=== PATIENT | male | born 1960 | race Hispanic/Latino ===

== ENCOUNTER → 2018-05-13 | Outpatient (CLI) | payer OTHER ==
[~2018-05-13] MED LIST: REGADENOSON 0.4 MG/5 ML PF SYG IVP SCH
== END | disposition home or self-care (01) ==
LOC: SHCH 09:03
PROVIDERS: ATTEND Internal Medicine Cardiovascular Disease
DX: I99.8 Other disorder of circulatory system (principal); I25.10 Atherosclerotic heart disease of native coronary artery without angina pectoris
CPT/HCPCS: 78452; 93017; 96374; A9500 ×2; J2785

== ENCOUNTER 2018-09-19 06:13 | Day surgery (SDC) | payer OTHER ==
[2018-09-17 14:15] LABS: BASOPHILS % (AUTO) 0.5 % (0.0-5.0); EOSINOPHILS % (AUTO) 4.5 % (0.0-8.0); HEMATOCRIT 28.7 % (42-54); LYMPHOCYTES % (AUTO) 21.9 % (21.0-51.0); MEAN CORPUSCULAR HEMOGLOBIN 31.2 pg (27.0-33.0); MEAN CORPUSCULAR HGB CONC 34.1 g/dL (32.0-36.0); MEAN CORPUSCULAR VOLUME 91.4 fL (79-99); MONOCYTES % (AUTO) 7.8 % (3.0-13.0); NEUTROPHILS % (AUTO) 65.3 % (40.0-77.0); PLATELET COUNT (AUTO) 226 K/uL (130-400); RED BLOOD CELL COUNT(AUTO) 3.14 MIL/uL (4.50-6.20); RED CELL DISTRIBUTION WIDTH 14.9 % (11.0-15.5); WHITE BLOOD COUNT (AUTO) 5.5 K/uL (4.8-10.8)
[2018-09-17 14:17] LABS: APPEARANCE,URINE Clear (CLEAR); BILIRUBIN,URINE Negative (NEGATIVE); COLOR,URINE Yellow (YELLOW); GLUCOSE, URINE (UA) Negative (NEGATIVE); KETONES,URINE Negative (NEGATIVE); LEUKOCYTE ESTERASE ,URINE Negative (NEGATIVE); NITRATE,URINE Negative (NEGATIVE); OCCULT BLOOD,URINE Negative (NEGATIVE); PROTEIN,URINE POS 2+ mg/dL (NEGATIVE); UROBILINOGEN,URINE 0.2 mg/dL (0.2-1.0)
[2018-09-17 14:25] VITALS: BP 123/65
[2018-09-17 14:25] LABS: CREATININE 4.1 mg/dL (0.5-1.5); POTASSIUM 4.7 mmol/L (3.5-5.1)
[2018-09-17 14:28] LABS: INR 0.96 (0.85-1.15); PARTIAL THROMBOPLASTIN TIME 28.3 SEC (26.3-35.5); PROTHROMBIN TIME 10.1 SEC (9.6-11.6)
[2018-09-17 14:36] LABS: BACTERIA,URINE Rare /HPF (None Seen); RBC,URINE 0-1 /HPF (0-1); SQUAMOUS EPITHELIAL CELL,UR Rare /HPF (0-2); WBC,URINE 0-1 /HPF (0-1)
--- NOTE | 2018-09-18 10:51 | NUR ---
labs abnormal labs reported to dr. gudino , message left with Jaqueline, as per Jaqueline fax so can review. labs faxed as intructed
--- NOTE | 2018-09-18 13:16 | NUR ---
LABS RECEIVED CALL BACK FOR ABNORMAL LABS REPORTED. PER DR. FRASER START NS 50CC/HR ON ARRIVAL DAY OF PROCEDURE DUE TO ELEVATED BUN/CREA ALSO MAKE PATIENT CASE NUMBER 2 , ROSI JOINER FROM [employer] WORKER MADE AWARE.
[~2018-09-19] VITALS: Ht 165.1 cm; Wt 88.2 kg
[2018-09-19] VITALS (10 sets, daily range): BP systolic 126–150; BP diastolic 52–74
[~2018-09-19 06:13] MED LIST changes: +FENO54TA6 PO; +FURO80TA3 PO; +IMAT400T8 PO; +INSLAN SQ; +LEVO88TA7 PO; +LOSA50TA64 PO; +METO-408 PO; +PANT40TA25 PO; -REGADENOSON 0.4 MG/5 ML PF SYG IVP SCH; +SODIUM CHLORIDE 0.9% 1000ML 1,000 ML IV SCH
[2018-09-19] MEDS ORDERED: HEPARIN SODIUM 1000UNIT/ML 10ML VIAL ONE (14:40)
[2018-09-19] MEDS ORDERED: IOHEXOL 350 MG/ML 100ML INFUS..BTL IV ONE (14:40)
[2018-09-19] MEDS ORDERED: LIDOCAINE HCL 1% 20 ML VIAL ONE (14:40)
[2018-09-19] MEDS ORDERED: IOHEXOL-350 50ML VIAL IV ONE (14:40)
--- NOTE | 2018-09-19 14:50 | NUR ---
procedure patient taken to geoscience laboratory technician for schedule procedure. spouse at bedside
[2018-09-19] MEDS ORDERED: DEXTROSE 50%-WATER 50 ML DISP.SYRIN IV PRN (15:45)
[2018-09-19] MEDS ORDERED: GLUCAGON 1MG KIT 1 MG ML IM PRN (15:45)
== END 2018-09-19 20:05 | disposition home or self-care (01) ==
LOC: DAH 06:13
PROVIDERS: ATTEND Internal Medicine Cardiovascular Disease
DX: I25.118 Atherosclerotic heart disease of native coronary artery with other forms of angina pectoris (principal); Z79.4 Long term (current) use of insulin; Z79.899 Other long term (current) drug therapy; Z87.891 Personal history of nicotine dependence; Z83.3 Family history of diabetes mellitus; Z82.49 Family history of ischemic heart disease and other diseases of the circulatory system; Z82.3 Family history of stroke; Z79.01 Long term (current) use of anticoagulants; E78.5 Hyperlipidemia, unspecified; Z98.890 Other specified postprocedural states; I25.5 Ischemic cardiomyopathy; I12.9 Hypertensive chronic kidney disease with stage 1 through stage 4 chronic kidney disease, or unspecified chronic kidney disease; E11.22 Type 2 diabetes mellitus with diabetic chronic kidney disease; N18.4 Chronic kidney disease, stage 4 (severe); E03.9 Hypothyroidism, unspecified; Z98.49 Cataract extraction status, unspecified eye
CPT/HCPCS: 36415; 71045; 80048; 81001; 82948; 85025; 85610; 85730; 93005; 93458; A4606; C1760; C1894; J1644; J7030; Q9967

== ENCOUNTER 2018-09-24 07:33 | Inpatient (IN) | payer OTHER ==
[2018-09-23 18:38] LABS: BASOPHILS % (AUTO) 0.5 % (0.0-5.0); EOSINOPHILS % (AUTO) 3.9 % (0.0-8.0); HEMATOCRIT 28.6 % (42-54); LYMPHOCYTES % (AUTO) 14.3 % (21.0-51.0); MEAN CORPUSCULAR HEMOGLOBIN 31.3 pg (27.0-33.0); MEAN CORPUSCULAR HGB CONC 34.5 g/dL (32.0-36.0); MEAN CORPUSCULAR VOLUME 90.6 fL (79-99); MONOCYTES % (AUTO) 8.9 % (3.0-13.0); NEUTROPHILS % (AUTO) 72.4 % (40.0-77.0); PLATELET COUNT (AUTO) 280 K/uL (130-400); RED BLOOD CELL COUNT(AUTO) 3.15 MIL/uL (4.50-6.20); RED CELL DISTRIBUTION WIDTH 15.6 % (11.0-15.5); WHITE BLOOD COUNT (AUTO) 6.8 K/uL (4.8-10.8)
[2018-09-23 18:53] LABS: INR 0.91 (0.85-1.15); PARTIAL THROMBOPLASTIN TIME 28.5 SEC (26.3-35.5); PROTHROMBIN TIME 9.6 SEC (9.6-11.6)
[2018-09-23 18:58] VITALS: BP 156/75
[2018-09-23 19:09] LABS: ALBUMIN 4.2 g/dL (3.5-5.0); BILIRUBIN,TOTAL 0.3 mg/dL (0.2-1.0); POTASSIUM 4.8 mmol/L (3.5-5.1); TOTAL PROTEIN, SERUM 7.4 g/dL (6.0-8.3)
--- NOTE | 2018-09-23 19:30 | NUR ---
Spoke to Dunia Jeffries RN and okay to cancel 2Decho due to EVAN will be done in procedured. Dunia Jeffries RN also ordered chest xray to be done stat in am. Carotid doppler pending to be done by ultrasound notified
--- NOTE | 2018-09-23 19:54 | NUR ---
LABS INFORMED Stu MARTINEZ RN OF ABNORMAL H/H/BUN/CREA. PER DR. MARTINEZ, NO ORDERS RECEIVED. PROCEED WITH PLANNED PROCEDURE.
[2018-09-23 20:13] LABS: HEMOGLOBIN A1C 7.5 % (4.0-6.0)
[2018-09-24] VITALS (32 sets, daily range): BP systolic 86–139; BP diastolic 29–78
[~2018-09-24] VITALS: Ht 165.1 cm; Wt 90.4 kg
[~2018-09-24 07:33] MED LIST changes: -SODIUM CHLORIDE 0.9% 1000ML 1,000 ML IV SCH
[2018-09-24] MEDS ORDERED: PAPAVERINE HCL 30 MG/ML 2ML VIAL ONE (07:47)
[2018-09-24] MEDS ORDERED: NITROGLYCERIN 50 MG/D5% WATER 1 BOT ONE (07:47)
[2018-09-24] MEDS ORDERED: BACITRACIN 50,000 UNIT VIAL ONE (07:48)
--- NOTE | 2018-09-24 07:55 | NUR ---
POTENTIAL FOR INFECTION: SHAVED FROM CHIN TO TOES BY KANE TYLER FOLLOWED BY WIPING WITH NISSA: 2% CHLORHEXIDINE GLUCONATE CLOTH PATIENTS PRE-OP SKIN OREO. Addendum: 09/24/18 at 0850 by ROBBIE JEAN BAPTISTE RN RN POTENTIAL FOR INFECTION: SKIN PREP.
[2018-09-24] MEDS ORDERED: EPINEPHRINE 1 MG/ML 30ML VIAL IJ ONE (08:00)
[2018-09-24] MEDS ORDERED: LIDOCAINE PF 2% 5ML ABBOJECT ONE (08:16)
[2018-09-24] MEDS ORDERED: HEPARIN SODIUM 1000UNIT/ML 10ML VIAL ONE (08:16)
[2018-09-24] MEDS ORDERED: ESMOLOL HCL 10 MG/ML 10 ML VIAL ONE (08:16)
[2018-09-24] MEDS ORDERED: SODIUM BICARB 50MEQ 50ML VIAL ONE ×2 (08:16→10:59)
[2018-09-24] MEDS ORDERED: EPINEPHRINE 1 MG/ML AMPULE ONE (08:16)
[2018-09-24] MEDS ORDERED: PROTAMINE SULFATE 10 MG/ML 25ML VIAL IV ONE (08:16)
[2018-09-24] MEDS ORDERED: NOREPINEPHRINE BITARTRATE 1 MG/1 ML ML IV ONE (08:17)
[2018-09-24] MEDS ORDERED: MIDAZOLAM HCL 1 MG/ML 5ML VIAL ONE (08:17)
[2018-09-24] MEDS ORDERED: AMINOCAPROIC ACID 250 MG/ML 20 ML VIAL IV ONE (08:17)
[2018-09-24] MEDS ORDERED: ROCURONIUM 10MG/1ML SYR 10 MG/ML ML ONE (08:17)
[2018-09-24] MEDS ORDERED: PROPOFOL 10 MG/ML 20ML VIAL IV ONE (08:17)
[2018-09-24] MEDS ORDERED: FENTANYL CITRATE PF 50 MCG/1 ML 20ML VIAL IJ ONE (08:17)
[2018-09-24] MEDS ORDERED: SODIUM CHLORIDE 0.9% 1000ML 1,000 ML IV ONE (08:25)
[2018-09-24] MEDS: CEFAZOLIN SODIUM 1 GM VIAL IVP ONE ×2 (08:38→09:30)
[2018-09-24 08:42] LABS: CHOLESTEROL 167 mg/dL (<200); HDL CHOLESTEROL 22 mg/dL (29-71); LDL DIRECT 92 mg/dL (0-99); TRIGLYCERIDES 333 mg/dL (30-200)
[2018-09-24 09:08] LABS: ABG BASE EXCESS -1.1 mmol/L (-2.0-3.0); ABG HCO3 22.2 mmol/L (21.0-28.0); ABG OXYGEN SATURATION 98.8 % (95.0-99.0); ABG PCO2 32 mmHg (35-48)
[2018-09-24] MEDS ORDERED: SODIUM CHLORIDE 0.9% 500ML 500 ML IV SCH (09:21)
[2018-09-24] MEDS ORDERED: AMIODARONE HCL 50 MG/ML 3 ML VIAL ONE (09:28)
[2018-09-24] MEDS ORDERED: PROPOFOL 1000 MG/100 ML 100 ML IV PRN (09:30)
[2018-09-24] MEDS ORDERED: NOREPINEPHRINE 4MG/NS 250ML 250 ML IV PRN (09:30)
[2018-09-24] MEDS ORDERED: ACETAMINOPHEN 325 MG TAB PO PRN ×2 (09:30)
[2018-09-24] MEDS ORDERED: NITROGLYCERIN 50 MG/D5% WATER 250 BOT IV SCH (09:30)
[2018-09-24] MEDS ORDERED: DEXTROSE 50%-WATER 50 ML DISP.SYRIN IV PRN (09:30)
[2018-09-24] MEDS ORDERED: SODIUM CHLORIDE 0.9% 1000ML 1,000 ML IV SCH (09:30)
[2018-09-24] MEDS ORDERED: MORPHINE SULFATE 4 MG/1ML SYG IV PRN (09:30)
[2018-09-24] MEDS ORDERED: AMINOCAPROIC ACID 15,000 MG in SODIUM CHLORIDE 0.9% 250 ML IV SCH (09:30)
[2018-09-24] MEDS ORDERED: GLUCAGON 1MG KIT 1 MG ML IM PRN (09:30)
[2018-09-24] MEDS ORDERED: POTASSIUM PHOS 15 mMOL+NS250ML 250 ML IV PRN (09:30)
[2018-09-24] MEDS ORDERED: POTASSIUM CHLORIDE 20MEQ/100ML 100 ML IV PRN (09:30)
[2018-09-24] MEDS ORDERED: ACETAMINOPHEN 650 MG SUPPOSITORY RC PRN (09:30)
[2018-09-24] MEDS ORDERED: TRAMADOL HCL 50 MG TABLET PO PRN (09:30)
[2018-09-24] MEDS ORDERED: MAGNESIUM 2GM PREMIX 50ML 50 ML IV PRN (09:30)
[2018-09-24] MEDS ORDERED: ALBUMIN (HUMAN) 5% 250 ML IV PRN (09:30)
[2018-09-24] MEDS ORDERED: NICARDIPINE HCL 100MG/ 0.9% NACL 100ML IV PRN (09:30)
[2018-09-24] MEDS ORDERED: SODIUM CHLORIDE 0.9% 250 ML IV PRN (09:30)
[2018-09-24] MEDS ORDERED: SODIUM CHLORIDE 0.9% 10 ML VIAL IVP PRN (09:30)
[2018-09-24] MEDS ORDERED: EPINEPHRINE 8 MG in DEXTROSE 5%-WATER 250 ML IV PRN (09:30)
[2018-09-24] MEDS ORDERED: VASOPRESSIN 20 UNITS/ML 1ML VIAL ONE (10:40)
[2018-09-24] MEDS ORDERED: FUROSEMIDE 10 MG/ML 4ML VIAL ONE (11:05)
[2018-09-24 11:49] LABS: ABG BASE EXCESS -7.3 mmol/L (-2.0-3.0); ABG HCO3 17.7 mmol/L (21.0-28.0); ABG OXYGEN SATURATION 98.8 % (95.0-99.0); ABG PCO2 33 mmHg (35-48)
--- NOTE | 2018-09-24 12:20 | NUR ---
PATIENT ARRIVED TO [facility] [address] GRANDE AND OR STAFF. PATIENT CONNECTED TO VENT AT ORDERED SETTINGS. 8.0 ETT @ 23CM LIP. 2 CHEST TUBES CONNECTED TO 1 ATRIUM WITH SUCTION. 35ML DRAINAGE PRESENT ON ARRIVAL. 16FR LUNA CATHETER IN PLACE, DRAINING CLEAR YELLOW URINE. PATIENT ARRIVED ON EPI AND LEVOPHED DRIPS. AMICAR INFUSION. LABS, ABG AND CXR PENDING ORDERED. ASSESSED PER CHARTING. BED LOCKED AND LOW. MONITORS ON AND ALARMS SET. WILL CONTINUE TO MONITOR.
--- NOTE | 2018-09-24 12:30 | NUR ---
[facility] OFFICE AND [facility] OFFICE CALLED TO NOTIFY OF PATIENT'S ADMISSION BY Olga IRVAS
[2018-09-24 12:47] LABS: HEMATOCRIT 22.7 % (42-54); MEAN CORPUSCULAR HEMOGLOBIN 31.1 pg (27.0-33.0); MEAN CORPUSCULAR VOLUME 91.5 fL (79-99); PLATELET COUNT (AUTO) 238 K/uL (130-400); RED BLOOD CELL COUNT(AUTO) 2.48 MIL/uL (4.50-6.20); RED CELL DISTRIBUTION WIDTH 15.3 % (11.0-15.5); WHITE BLOOD COUNT (AUTO) 15.6 K/uL (4.8-10.8)
[2018-09-24 12:58] LABS: CREATININE 3.6 mg/dL (0.5-1.5); INR 1.2 (0.85-1.15); MAGNESIUM 1.8 mg/dL (1.80-2.40); PARTIAL THROMBOPLASTIN TIME 25.8 SEC (26.3-35.5); PHOSPHORUS 5.5 mg/dL (2.5-4.9); POTASSIUM 3.5 mmol/L (3.5-5.1); PROTHROMBIN TIME 12.6 SEC (9.6-11.6)
[2018-09-24 13:03] LABS: ABG BASE EXCESS -4.2 mmol/L (-2.0-3.0); ABG HCO3 21.2 mmol/L (21.0-28.0); ABG OXYGEN SATURATION 97.6 % (95.0-99.0); ABG PCO2 40 mmHg (35-48)
[2018-09-24] MEDS: SODIUM BICARB 50MEQ 50ML VIAL IV PRN ×3 (13:07→14:26)
[2018-09-24] MEDS: CALCIUM GLUCONATE 1 GM in SODIUM CHLORIDE 0.9% 50 ML IV PRN ×3 (13:16→16:15)
[2018-09-24] MEDS: INSULIN REGULAR, HUMAN 3ML 100 UNIT in SODIUM CHLORIDE 0.9% 99 ML IV SCH ×4 (13:18→19:59)
--- NOTE | 2018-09-24 13:50 | NUR ---
PATIENT'S FAMILY, (SPOUSE, CHILDREN AND BROTHERS) IN TO VISIT. EDUCATED ON POST OP PLAN, VISITATION AND ANSWERED ALL QUESTIONS. LEYDI BOSTON (SPOUSE) [phone]. FAMILY WILL CALL FOR UPDATE LATER AND WILL RETURN TO VISIT IN AM.
[2018-09-24 14:24] LABS: ABG BASE EXCESS -2.5 mmol/L (-2.0-3.0); ABG OXYGEN SATURATION 98.6 % (95.0-99.0); ABG PCO2 42 mmHg (35-48)
[2018-09-24] MEDS ORDERED: CEFAZOLIN SODIUM 1 GM VIAL IV SCH (14:30)
[2018-09-24] MEDS ORDERED: HEPARIN SODIUM 1000UNIT/ML 10ML VIAL IV ONE (15:29)
[2018-09-24] MEDS ORDERED: PHENYLEPHRINE HCL 10 MG/ML 1ML VIAL IV ONE (15:29)
[2018-09-24 15:53] LABS: HEMATOCRIT 23.6 % (42-54)
[2018-09-24 15:58] LABS: ABG BASE EXCESS -0.7 mmol/L (-2.0-3.0); ABG HCO3 23.7 mmol/L (21.0-28.0); ABG OXYGEN SATURATION 99.3 % (95.0-99.0); ABG PCO2 38 mmHg (35-48)
[2018-09-24 17:08] LABS: ABG BASE EXCESS -0.1 mmol/L (-2.0-3.0); ABG HCO3 24.6 mmol/L (21.0-28.0); ABG OXYGEN SATURATION 99.2 % (95.0-99.0); ABG PCO2 40 mmHg (35-48)
[2018-09-24] MEDS: CEFAZOLIN SODIUM 1 GM VIAL IV SCH (17:12)
[2018-09-24 17:21] LABS: CREATININE 3.9 mg/dL (0.5-1.5); MAGNESIUM 2.5 mg/dL (1.80-2.40); POTASSIUM 4.3 mmol/L (3.5-5.1); THYROID STIMULATING HORMONE 5.81 uIU/mL (0.36-3.74)
[2018-09-24 18:13] LABS: ABG HCO3 27.5 mmol/L (21.0-28.0); ABG OXYGEN SATURATION 98.2 % (95.0-99.0); ABG PCO2 42 mmHg (35-48)
[2018-09-24] MEDS: ONDANSETRON HCL 4 MG/2 ML VIAL IV PRN (18:19)
--- NOTE | 2018-09-24 19:30 | NUR ---
ASSESSMENT PT ASSESSED AT THIS TIME. PT DROWSY AROUSED BY VERBAL STIMULI REMAINS INTUBATED WITH 8.0 ET TUBE TAPPED AT APPROXIMATELY 23 CM LIP. VENT SETTINGS SIMV RATE 12, VT 600, PEEP 5, PS 10, FIO2 40%. CLEAR/DIMINISHED BILATERAL BREATH SOUNDS AUSCULTATED. OG TUBE NOTED PLACEMENT ASSESSED AND CONFIRMED WITH AIR BOLUS THEN PLACED BACK TO LIWS DRAINAGE IS PINKISH BROWN IN COLOR. BOWEL SOUNDS HYPOACTIVE. MID LINE INCISION DRESSING DRY AND INTACT. MEDIASTINAL CHEST TUBES X 2 TO 20CM H20 SUCTION DRAINAGE IS SANGUINEOUS IN COLOR. LUNA TO GRAVITY DRAINING WELL PALE YELLOW URINE. RIGHT LOWER EXT WITH SOILA HOSE LEFT LOWER EXT WITH LUKE BANDAGE. RIJ CORDIS INFUSING WELL. LEFT RADIAL A LINE WITH GOOD WAVEFORM PIV TO RIGHT FOREARM INFUSING WELL.
[2018-09-24] MEDS: IMATINIB 400 MG PO SCH (19:33)
[2018-09-24] MEDS: ATORVASTATIN CALCIUM 40 MG TABLET PO SCH (19:33)
[2018-09-24 20:03] LABS: ABG BASE EXCESS 2.6 mmol/L (-2.0-3.0); ABG HCO3 26.5 mmol/L (21.0-28.0); ABG OXYGEN SATURATION 98.3 % (95.0-99.0); ABG PCO2 38 mmHg (35-48)
[2018-09-24] MEDS: MORPHINE SULFATE 2 MG/ML 1ML SYG IV PRN (21:38)
--- NOTE | 2018-09-24 22:20 | NUR ---
DR. HARRISON TERRY UPDATED ON PT STATUS CURRENT VS, MEDS AND ATTEMPTS TO WEAN FROM VENT BUT PT REMAINS DROWSY AND NOT BREATHING OVER THE VENT WHEN DECREASED. PT DOES WAKE UP WHEN SPOKEN TO NODS TO QUESTIONS WHEN ASKED AND MOVING EXTS EQUALLY WITH GENERALIZED WEAKNESS. ORDER WAS GIVEN TO KEEP INTUBATED OVER NIGHT AND PLAN FOR EXTUBATION IN THE MORNING. WILL CONTINUE TO MONITOR.
[2018-09-25] VITALS (26 sets, daily range): BP systolic 70–135; BP diastolic 26–77
[2018-09-25] MEDS: CEFAZOLIN SODIUM 1 GM VIAL IV SCH ×2 (01:21→08:32)
[2018-09-25 04:08] LABS: ABG BASE EXCESS 3.1 mmol/L (-2.0-3.0); ABG OXYGEN SATURATION 97.7 % (95.0-99.0); ABG PCO2 38 mmHg (35-48)
[2018-09-25] MEDS: CALCIUM GLUCONATE 1 GM in SODIUM CHLORIDE 0.9% 50 ML IV PRN ×2 (04:10→04:21)
[2018-09-25] MEDS ORDERED: CALCIUM GLUCONATE 1 GM/10 ML VIAL IV ONE (04:10)
[2018-09-25 04:21] LABS: HEMATOCRIT 23.2 % (42-54); MEAN CORPUSCULAR HEMOGLOBIN 30.6 pg (27.0-33.0); MEAN CORPUSCULAR HGB CONC 33.7 g/dL (32.0-36.0); MEAN CORPUSCULAR VOLUME 90.8 fL (79-99); PLATELET COUNT (AUTO) 261 K/uL (130-400); RED BLOOD CELL COUNT(AUTO) 2.55 MIL/uL (4.50-6.20); RED CELL DISTRIBUTION WIDTH 15.5 % (11.0-15.5); WHITE BLOOD COUNT (AUTO) 12.3 K/uL (4.8-10.8)
[2018-09-25 04:30] LABS: INR 1.02 (0.85-1.15); PARTIAL THROMBOPLASTIN TIME 27.2 SEC (26.3-35.5); PROTHROMBIN TIME 10.7 SEC (9.6-11.6)
[2018-09-25 04:32] LABS: MAGNESIUM 2.1 mg/dL (1.80-2.40); PHOSPHORUS 3.2 mg/dL (2.5-4.9); POTASSIUM 4.1 mmol/L (3.5-5.1)
[2018-09-25] MEDS: MORPHINE SULFATE 2 MG/ML 1ML SYG IV PRN (04:40)
[2018-09-25] MEDS: LEVOTHYROXINE 88 MCG TABLET PO SCH (05:56)
[2018-09-25] MEDS: ASPIRIN 325 MG TABLET PO SCH (08:32)
[2018-09-25] MEDS: FAMOTIDINE/PF 20 MG/2 ML VIAL IV SCH (08:32)
[2018-09-25] MEDS ORDERED: FUROSEMIDE 10 MG/ML 10ML VIAL IVP SCH (09:00)
[2018-09-25] MEDS ORDERED: ASPIRIN 325MG EC TAB 325 MG TABLET.DR PO SCH (09:00)
[2018-09-25] MEDS: ONDANSETRON HCL 4 MG/2 ML VIAL IV PRN ×2 (09:40→19:11)
--- NOTE | 2018-09-25 10:02 | NUR ---
PATIENT IS AWAKE, ABLE TO SUSTAIN HEAD LIFT, STRONG COUGH AND FOLLOWING COMMANDS. PATIENT'S AND DAUGHTER AT BEDSIDE, ALL QUESTIONS ANSWERED. PATIENT IS ON SIMV 4/600/+5/10/40% PENDING ABG IN 15MIN.
[2018-09-25 10:23] LABS: ABG BASE EXCESS 3.3 mmol/L (-2.0-3.0); ABG HCO3 26.9 mmol/L (21.0-28.0); ABG OXYGEN SATURATION 98.8 % (95.0-99.0); ABG PCO2 38 mmHg (35-48)
[2018-09-25 11:45] LABS: ABG BASE EXCESS 5.3 mmol/L (-2.0-3.0); ABG HCO3 29.4 mmol/L (21.0-28.0); ABG OXYGEN SATURATION 99.5 % (95.0-99.0); ABG PCO2 41 mmHg (35-48)
[2018-09-25] MEDS: TRAMADOL HCL 50 MG TABLET PO PRN ×2 (13:03→21:05)
--- NOTE | 2018-09-25 15:17 | NUR ---
DC PLAN VISITED WITH PATIENT. PATIENT LIVES WITH SPOUSE. INDEPENDENT ABLE TO PERFORM ADL'S. PATIENT HAS NO SERVICES OR DME'S. FEELS SAFE TO RETURN HOME. STILL IN SOME PAIN. Addendum: 09/25/18 at 1519 by OMA LAGUERRE RN CM Amended: Links added.
[2018-09-25] MEDS ORDERED: FAMOTIDINE 20MG TAB 20 MG TAB PO SCH (21:00)
[2018-09-25] MEDS: FENOFIBRATE NANOCRYSTALLIZED 48 MG TAB PO SCH (21:04)
[2018-09-25] MEDS: ATORVASTATIN CALCIUM 40 MG TABLET PO SCH (21:05)
[2018-09-25] MEDS: IMATINIB 400 MG PO SCH (21:05)
[2018-09-25] MEDS: INSULIN REGULAR, HUMAN 3ML 100 UNIT in SODIUM CHLORIDE 0.9% 99 ML IV SCH ×2 (21:58)
[2018-09-26] VITALS (17 sets, daily range): BP systolic 97–124; BP diastolic 43–73
[2018-09-26 04:10] LABS: MEAN CORPUSCULAR HGB CONC 34.5 g/dL (32.0-36.0); MEAN CORPUSCULAR VOLUME 92.7 fL (79-99); PLATELET COUNT (AUTO) 176 K/uL (130-400); RED BLOOD CELL COUNT(AUTO) 2.22 MIL/uL (4.50-6.20); RED CELL DISTRIBUTION WIDTH 15.7 % (11.0-15.5); WHITE BLOOD COUNT (AUTO) 6.6 K/uL (4.8-10.8)
[2018-09-26 04:17] LABS: HEMATOCRIT 20.6 % (42-54)
[2018-09-26 04:24] LABS: CREATININE 4.1 mg/dL (0.5-1.5); POTASSIUM 4.7 mmol/L (3.5-5.1)
[2018-09-26] MEDS: LEVOTHYROXINE 88 MCG TABLET PO SCH (05:52)
[2018-09-26] MEDS: INSULIN HUMULIN R 100 UNIT/ML 3ML SQ SCH ×4 (07:30→21:20)
[2018-09-26] MEDS: FAMOTIDINE/PF 20 MG/2 ML VIAL IV SCH (08:06)
[2018-09-26] MEDS: ASPIRIN 325 MG TABLET PO SCH (08:06)
[2018-09-26] MEDS: FUROSEMIDE 80 MG TABLET PO SCH (08:06)
[2018-09-26] MEDS: ENOXAPARIN SODIUM 40 MG/0.4 ML SYRINGE SQ SCH (08:07)
[2018-09-26] MEDS ORDERED: ENOXAPARIN SODIUM 30 MG/0.3 ML SQ SCH (09:00)
[2018-09-26] MEDS: TRAMADOL HCL 50 MG TABLET PO PRN (19:56)
[2018-09-26] MEDS: FENOFIBRATE NANOCRYSTALLIZED 48 MG TAB PO SCH (20:47)
[2018-09-26] MEDS: ATORVASTATIN CALCIUM 40 MG TABLET PO SCH (20:48)
[2018-09-26] MEDS: IMATINIB 400 MG PO SCH (20:55)
[2018-09-27 03:00] VITALS: BP 115/70
[2018-09-27 03:33] LABS: MEAN CORPUSCULAR HEMOGLOBIN 31.4 pg (27.0-33.0); MEAN CORPUSCULAR HGB CONC 33.7 g/dL (32.0-36.0); MEAN CORPUSCULAR VOLUME 93.2 fL (79-99); PLATELET COUNT (AUTO) 186 K/uL (130-400); RED BLOOD CELL COUNT(AUTO) 2.18 MIL/uL (4.50-6.20); RED CELL DISTRIBUTION WIDTH 15.7 % (11.0-15.5)
[2018-09-27 03:35] LABS: HEMATOCRIT 20.3 % (42-54)
[2018-09-27 03:39] LABS: CREATININE 4.9 mg/dL (0.5-1.5); POTASSIUM 4.3 mmol/L (3.5-5.1)
[2018-09-27] MEDS: INSULIN HUMULIN R 100 UNIT/ML 3ML SQ SCH ×3 (06:25→21:00)
[2018-09-27] MEDS: LEVOTHYROXINE 88 MCG TABLET PO SCH (06:25)
[2018-09-27] MEDS: TRAMADOL HCL 50 MG TABLET PO PRN ×2 (06:29→21:52)
[2018-09-27 06:53] LABS: HEMATOCRIT 20.9 % (42-54)
[2018-09-27 07:00] VITALS: BP 118/71
[2018-09-27] MEDS ORDERED: SODIUM CHLORIDE 0.9% 250 ML IV ONE (07:44)
[2018-09-27] MEDS: METOPROLOL TARTRATE 25 MG TAB PO SCH ×2 (09:00→21:45)
[2018-09-27] MEDS: ENOXAPARIN SODIUM 40 MG/0.4 ML SYRINGE SQ SCH (09:00)
[2018-09-27] MEDS: FUROSEMIDE 80 MG TABLET PO SCH (09:00)
[2018-09-27] MEDS: ASPIRIN 325 MG TABLET PO SCH (09:00)
[2018-09-27] MEDS: FAMOTIDINE/PF 20 MG/2 ML VIAL IV SCH (09:00)
[2018-09-27 11:45] VITALS: BP 118/75
[2018-09-27] MEDS: CEFAZOLIN SODIUM 1 GM VIAL IVP SCH ×2 (14:45→23:36)
[2018-09-27] MEDS: IPRATROPIUM 0.5 MG/2.5 ML INH IH SCH ×2 (18:23→22:57)
[2018-09-27 19:00] VITALS: BP 105/64
[2018-09-27] MEDS: IMATINIB 400 MG PO SCH (21:00)
[2018-09-27] MEDS: FENOFIBRATE NANOCRYSTALLIZED 48 MG TAB PO SCH (21:45)
[2018-09-27] MEDS: ATORVASTATIN CALCIUM 40 MG TABLET PO SCH (21:45)
[2018-09-27] MEDS: POLYETHYLENE GLYCOL 3350 17 GM POWD.PACK PO SCH (22:15)
[2018-09-27] MEDS ORDERED: LACTULOSE 20 GM/30 ML UDCUP PO PRN (22:15)
[2018-09-27 23:00] VITALS: BP 132/74
[2018-09-28 03:00] VITALS: BP 128/69
[2018-09-28 04:11] LABS: HEMATOCRIT 22.6 % (42-54); MEAN CORPUSCULAR HEMOGLOBIN 31.3 pg (27.0-33.0); MEAN CORPUSCULAR HGB CONC 34.5 g/dL (32.0-36.0); PLATELET COUNT (AUTO) 182 K/uL (130-400); RED BLOOD CELL COUNT(AUTO) 2.48 MIL/uL (4.50-6.20); RED CELL DISTRIBUTION WIDTH 15.5 % (11.0-15.5); WHITE BLOOD COUNT (AUTO) 6.3 K/uL (4.8-10.8)
[2018-09-28 04:48] LABS: CREATININE 4.8 mg/dL (0.5-1.5); MAGNESIUM 2.3 mg/dL (1.80-2.40); POTASSIUM 4.2 mmol/L (3.5-5.1)
[2018-09-28 04:51] LABS: B-TYPE NATRIURETIC PEPTIDE 1300 pg/mL (0-100)
[2018-09-28] MEDS: LEVOTHYROXINE 88 MCG TABLET PO SCH (05:51)
[2018-09-28] MEDS: INSULIN HUMULIN R 100 UNIT/ML 3ML SQ SCH ×5 (06:08→20:48)
[2018-09-28] MEDS: IPRATROPIUM 0.5 MG/2.5 ML INH IH SCH ×4 (06:25→23:25)
[2018-09-28 07:00] VITALS: BP 131/66
[2018-09-28] MEDS: ENOXAPARIN SODIUM 40 MG/0.4 ML SYRINGE SQ SCH (08:27)
[2018-09-28] MEDS: FAMOTIDINE/PF 20 MG/2 ML VIAL IV SCH (08:28)
[2018-09-28] MEDS: ASPIRIN 325 MG TABLET PO SCH (08:29)
[2018-09-28] MEDS: POLYETHYLENE GLYCOL 3350 17 GM POWD.PACK PO SCH (08:29)
[2018-09-28] MEDS: CARVEDILOL 12.5 MG TABLET PO SCH ×2 (08:29→20:35)
[2018-09-28] MEDS: FUROSEMIDE 80 MG TABLET PO SCH (08:29)
[2018-09-28 10:30] VITALS: BP 95/61
[2018-09-28 15:30] VITALS: BP 99/41
[2018-09-28 19:00] VITALS: BP 102/49
[2018-09-28] MEDS: FENOFIBRATE NANOCRYSTALLIZED 48 MG TAB PO SCH (20:34)
[2018-09-28] MEDS: ATORVASTATIN CALCIUM 40 MG TABLET PO SCH (20:35)
[2018-09-28] MEDS: IMATINIB 400 MG PO SCH (20:35)
[2018-09-28 23:00] VITALS: BP 107/58
[2018-09-29 03:00] VITALS: BP 111/63
[2018-09-29] MEDS: LEVOTHYROXINE 88 MCG TABLET PO SCH (06:07)
[2018-09-29] MEDS: INSULIN HUMULIN R 100 UNIT/ML 3ML SQ SCH ×4 (06:10→21:44)
[2018-09-29 07:00] VITALS: BP 109/64
[2018-09-29] MEDS: IPRATROPIUM 0.5 MG/2.5 ML INH IH SCH ×4 (07:14→23:29)
[2018-09-29] MEDS: POLYETHYLENE GLYCOL 3350 17 GM POWD.PACK PO SCH (08:28)
[2018-09-29] MEDS: FAMOTIDINE/PF 20 MG/2 ML VIAL IV SCH (08:28)
[2018-09-29] MEDS: ASPIRIN 325 MG TABLET PO SCH (08:29)
[2018-09-29] MEDS: FUROSEMIDE 80 MG TABLET PO SCH (08:31)
[2018-09-29] MEDS: ENOXAPARIN SODIUM 40 MG/0.4 ML SYRINGE SQ SCH (08:32)
[2018-09-29] MEDS: CARVEDILOL 12.5 MG TABLET PO SCH ×2 (08:34→21:38)
[2018-09-29 11:00] VITALS: BP 101/47
[2018-09-29] MEDS ORDERED: EPOETIN ALFA 10,000 UNIT/ML VIAL SQ SCH (11:15)
[2018-09-29 16:00] VITALS: BP_SYST 110; BP_SYST 111; BP_DIAS 27; BP_DIAS 73
[2018-09-29] MEDS ORDERED: METOCLOPRAMIDE 10 MG/2 ML VIAL IVP SCH (16:00)
[2018-09-29] MEDS ORDERED: METOCLOPRAMIDE 10 MG/2 ML VIAL ONE (16:05)
[2018-09-29] MEDS: METOCLOPRAMIDE 10 MG TABLET PO SCH ×2 (16:30→21:39)
[2018-09-29 20:45] VITALS: BP 114/64
[2018-09-29] MEDS ORDERED: CALCIUM GLUCONATE 1 GM/10 ML VIAL IV SCH (21:00)
[2018-09-29] MEDS: CALCIUM GLUCONATE 1 GM in SODIUM CHLORIDE 0.9% 50 ML IV SCH ×2 (21:27→22:22)
[2018-09-29] MEDS: FENOFIBRATE NANOCRYSTALLIZED 48 MG TAB PO SCH (21:37)
[2018-09-29] MEDS: ATORVASTATIN CALCIUM 40 MG TABLET PO SCH (21:38)
[2018-09-29] MEDS: IRON POLYSACCHARIDES COMPLEX 150 MG CAPSULE PO SCH (21:39)
[2018-09-29] MEDS: ASCORBIC ACID 500 MG TAB PO SCH (21:39)
[2018-09-29] MEDS: DOCUSATE SODIUM 100 MG CAP PO SCH (21:39)
[2018-09-29] MEDS: IMATINIB 400 MG PO SCH (21:45)
[2018-09-30] VITALS (7 sets, daily range): BP systolic 97–124; BP diastolic 48–65
[2018-09-30 04:20] LABS: INR 0.96 (0.85-1.15); PARTIAL THROMBOPLASTIN TIME 32.1 SEC (26.3-35.5); PROTHROMBIN TIME 10.1 SEC (9.6-11.6)
[2018-09-30 04:26] LABS: LYMPHOCYTES % (AUTO) 13.7 % (21.0-51.0); MEAN CORPUSCULAR HEMOGLOBIN 30.3 pg (27.0-33.0); MEAN CORPUSCULAR HGB CONC 33.5 g/dL (32.0-36.0); MEAN CORPUSCULAR VOLUME 90.5 fL (79-99); MONOCYTES % (AUTO) 8.6 % (3.0-13.0); NEUTROPHILS % (AUTO) 75.7 % (40.0-77.0); PLATELET COUNT (AUTO) 190 K/uL (130-400); RED BLOOD CELL COUNT(AUTO) 2.32 MIL/uL (4.50-6.20); WHITE BLOOD COUNT (AUTO) 6.9 K/uL (4.8-10.8)
[2018-09-30 04:44] LABS: % IRON SATURATION 18.3 % (30-44)
[2018-09-30 04:52] LABS: ALBUMIN 2.5 g/dL (3.5-5.0); CREATININE 5.2 mg/dL (0.5-1.5); PHOSPHORUS 2.9 mg/dL (2.5-4.9); POTASSIUM 4.3 mmol/L (3.5-5.1)
[2018-09-30] MEDS: IPRATROPIUM 0.5 MG/2.5 ML INH IH SCH ×4 (06:17→23:18)
[2018-09-30] MEDS: INSULIN HUMULIN R 100 UNIT/ML 3ML SQ SCH ×4 (07:30→21:00)
[2018-09-30] MEDS: ASCORBIC ACID 500 MG TAB PO SCH ×2 (08:08→21:41)
[2018-09-30] MEDS: IRON POLYSACCHARIDES COMPLEX 150 MG CAPSULE PO SCH ×2 (08:08→21:41)
[2018-09-30] MEDS: FUROSEMIDE 40 MG TABLET PO SCH (08:09)
[2018-09-30] MEDS: CARVEDILOL 12.5 MG TABLET PO SCH ×2 (08:10→21:43)
[2018-09-30] MEDS: FAMOTIDINE/PF 20 MG/2 ML VIAL IV SCH (08:10)
[2018-09-30] MEDS: DOCUSATE SODIUM 100 MG CAP PO SCH ×2 (08:10→21:44)
[2018-09-30] MEDS: METOCLOPRAMIDE 10 MG TABLET PO SCH ×4 (08:10→21:44)
[2018-09-30] MEDS: POLYETHYLENE GLYCOL 3350 17 GM POWD.PACK PO SCH (08:11)
[2018-09-30] MEDS: ENOXAPARIN SODIUM 30 MG/0.3 ML SQ SCH (08:12)
[2018-09-30] MEDS: LEVOTHYROXINE 88 MCG TABLET PO SCH (08:16)
[2018-09-30] MEDS ORDERED: LIDOCAINE HCL 1% MDV 50ML VIAL ONE (08:36)
[2018-09-30] MEDS ORDERED: LIDOCAINE 1%-EPI 1:100,000 20 ML VIAL IJ ONE (08:36)
--- NOTE | 2018-09-30 08:57 | NUR ---
PT IN RECORDING STUDIO SET UP WORKER HAVING PERMACATH
[2018-09-30] MEDS: ASPIRIN 325 MG TABLET PO SCH (10:26)
--- NOTE | 2018-09-30 12:10 | NUR ---
TIME OUT FOR EVAN DONE WITH DR TYLER AND PHYSICIAN NEONATOLOGY AT BEDSIDE. Addendum: 09/30/18 at 1555 by PRISCILLA ARCOS RN RN ERROR WRONG CHART
--- NOTE | 2018-09-30 12:30 | NUR ---
EVAN ABORTED- UNABLE TO PASS SCOPE. RECEIVED A TOTAL OF 100MCG IV FENTANYL AND 5MG IV VERSED. DROWSY. PLACED ON HIS LEFT SIDE. AIRWAY PATENT. WILL OBSERVE. PLEASE REFER TO V/S. Addendum: 09/30/18 at 1547 by PRISCILLA ARCOS RN RN ERROR WRONG CHART
--- NOTE | 2018-09-30 12:30 | NUR ---
EVAN ABORTED- UNABLE TO PASS SCOPE. RECEIVED A TOTAL OF 100MCG IV FENTANYL AND 5MG IV VERSED. DROWSY. PLACED ON HIS LEFT SIDE. AIRWAY PATENT. WILL OBSRVE. PLEASE REFER TO V/S. Addendum: 09/30/18 at 1547 by PRISCILLA ARCOS RN RN ERROR WRONG CHART
--- NOTE | 2018-09-30 15:00 | NUR ---
PT IS NOW AWAKE AND TOLERATING CLEAR LIQUIDS. AT BEDSIDE Addendum: 09/30/18 at 1548 by PRISCILLA ARCOS RN RN ERROR WRONG CHART
[2018-09-30] MEDS ORDERED: SODIUM CHLORIDE 0.9% 1000ML 1,000 ML IV ONE (16:35)
--- NOTE | 2018-09-30 17:30 | NUR ---
Nutrition Intervention: Nutrition screen based on LOS x 6 days. Pt. admitted with Dx of CAD. Pt. S/P CABG(09/24/18). Pt's first HD tx being initiated during visit. Pt. on 75gm CCD Gen. Heart Healthy diet with fair p.o. intake, per pt. Labs reviewed(Alb 2.5, BUN 95, Creat 5.2, GFR 12, BG 215, HgbA1c 7.5%). LBM: 09/29/18. SR-18, chest incision. BMI: 33.2, Obesity Grade 1. Recommendations: 1) Rec. 75gm CCD Heart Healthy Renal Dialysis diet. 2) Rec. 30ml ProMod BID with B'fast and dinner meals. 3) Continue to monitor pt's nutritional status. 4) Consult RD as nutrition concerns arise. Addendum: 09/30/18 at [address] Amended: Links added.
--- NOTE | 2018-09-30 18:00 | NUR ---
HEMODIALYSIS THERAPY IN PROGRESS- TOLERATING PROCEDURE. PLEASE REFER TO BLOOD TRANSFUSION RECORDS AND HEMODIALYSIS RECORD
[2018-09-30] MEDS ORDERED: SODIUM CHLORIDE 0.9% 250 ML IV ONE (18:06)
[2018-09-30] MEDS ORDERED: NITROGLYCERIN 0.4 MG SL TAB SL PRN (19:45)
[2018-09-30] MEDS ORDERED: ACETAMINOPHEN 325 MG TAB PO PRN (19:45)
[2018-09-30] MEDS ORDERED: SODIUM CHLORIDE 0.9% 1000ML 1,000 ML IV PRN (19:45)
[2018-09-30] MEDS ORDERED: 0.9% SODIUM CHLORIDE 1000 ML IV BAG IV PRN (19:45)
[2018-09-30] MEDS: HEPARIN SODIUM 5000UNIT/ML 1ML VIAL IJ PRN (19:51)
[2018-09-30] MEDS: IMATINIB 400 MG PO SCH (21:00)
[2018-09-30] MEDS: ONDANSETRON HCL 4 MG/2 ML VIAL IV PRN (21:41)
[2018-09-30] MEDS: ATORVASTATIN CALCIUM 40 MG TABLET PO SCH (21:41)
[2018-09-30] MEDS: FENOFIBRATE NANOCRYSTALLIZED 48 MG TAB PO SCH (21:44)
[2018-10-01] VITALS (7 sets, daily range): BP systolic 88–128; BP diastolic 57–81
[2018-10-01 04:53] LABS: CREATININE 4.2 mg/dL (0.5-1.5); POTASSIUM 4.2 mmol/L (3.5-5.1)
[2018-10-01 05:30] LABS: HEMATOCRIT 26.2 % (42-54); MEAN CORPUSCULAR HEMOGLOBIN 31.9 pg (27.0-33.0); MEAN CORPUSCULAR HGB CONC 35.2 g/dL (32.0-36.0); MEAN CORPUSCULAR VOLUME 90.7 fL (79-99); PLATELET COUNT (AUTO) 194 K/uL (130-400); RED BLOOD CELL COUNT(AUTO) 2.89 MIL/uL (4.50-6.20); RED CELL DISTRIBUTION WIDTH 14.5 % (11.0-15.5); WHITE BLOOD COUNT (AUTO) 7.6 K/uL (4.8-10.8)
[2018-10-01] MEDS: LEVOTHYROXINE 88 MCG TABLET PO SCH (06:18)
[2018-10-01] MEDS: METOCLOPRAMIDE 10 MG TABLET PO SCH ×4 (06:18→21:00)
[2018-10-01] MEDS: IPRATROPIUM 0.5 MG/2.5 ML INH IH SCH ×3 (06:28→17:49)
[2018-10-01] MEDS: INSULIN HUMULIN R 100 UNIT/ML 3ML SQ SCH ×4 (06:33→21:00)
[2018-10-01 07:13] LABS: HEPATITIS Bs ANTIGEN SCREEN P Negative (Negative)
[2018-10-01] MEDS: POLYETHYLENE GLYCOL 3350 17 GM POWD.PACK PO SCH (09:00)
[2018-10-01] MEDS: IRON POLYSACCHARIDES COMPLEX 150 MG CAPSULE PO SCH ×2 (09:00→21:27)
[2018-10-01] MEDS: FUROSEMIDE 40 MG TABLET PO SCH (09:00)
[2018-10-01] MEDS: DOCUSATE SODIUM 100 MG CAP PO SCH ×2 (09:00→21:24)
[2018-10-01] MEDS: CARVEDILOL 12.5 MG TABLET PO SCH ×2 (09:00→21:26)
[2018-10-01] MEDS: ASCORBIC ACID 500 MG TAB PO SCH ×2 (10:28→21:27)
[2018-10-01] MEDS: ASPIRIN 325 MG TABLET PO SCH (10:28)
[2018-10-01] MEDS: ENOXAPARIN SODIUM 30 MG/0.3 ML SQ SCH (10:29)
[2018-10-01] MEDS: TRAMADOL HCL 50 MG TABLET PO PRN (10:30)
[2018-10-01] MEDS: FAMOTIDINE/PF 20 MG/2 ML VIAL IV SCH (10:30)
[2018-10-01] MEDS: HEPARIN SODIUM 5000UNIT/ML 1ML VIAL IJ PRN (12:41)
--- NOTE | 2018-10-01 14:08 | NUR ---
ILYA MOE VISITED WITH PATIENT AIDA SIGNED FOR DIALYSIS. SENT INFO TO [facility]. THEY CALLED BACK TODAY WITH CHAIR TIME MWF BUT THEN CORPORATE CALLED AND SAID THEY WERE NOT IN NETWORK. SENT INFO TO [facility] SINCE DR. MOLINA ALSO GOES THERE. INSURANCE CALLED SAID THAT THEY ARE NOT IN NETWORK ONLY IN NETWORK IS [facility]. CALLED THEM THEY SAID THAT DR. MOLINA IS NOT IN NETWORK. WILL CHECK WITH DR. MOLINA. Addendum: 10/01/18 at 1415 by OMA LGAUERRE RN CM Amended: Links added.
[2018-10-01] MEDS: ATORVASTATIN CALCIUM 40 MG TABLET PO SCH (21:26)
[2018-10-01] MEDS: FENOFIBRATE NANOCRYSTALLIZED 48 MG TAB PO SCH (21:27)
[2018-10-01] MEDS: IMATINIB 400 MG PO SCH (21:33)
[2018-10-02] MEDS: IPRATROPIUM 0.5 MG/2.5 ML INH IH SCH ×5 (01:25→23:28)
[2018-10-02 03:00] VITALS: BP 118/72
[2018-10-02] MEDS: LEVOTHYROXINE 88 MCG TABLET PO SCH (05:30)
[2018-10-02] MEDS: METOCLOPRAMIDE 10 MG TABLET PO SCH ×2 (05:31→05:41)
[2018-10-02] MEDS: ONDANSETRON HCL 4 MG/2 ML VIAL IV PRN (05:41)
[2018-10-02] MEDS: INSULIN HUMULIN R 100 UNIT/ML 3ML SQ SCH ×4 (06:23→21:17)
[2018-10-02 07:00] VITALS: BP 116/72
[2018-10-02] MEDS: DOCUSATE SODIUM 100 MG CAP PO SCH ×2 (09:00→21:14)
[2018-10-02] MEDS: CARVEDILOL 12.5 MG TABLET PO SCH ×2 (09:00→21:14)
[2018-10-02] MEDS: IRON POLYSACCHARIDES COMPLEX 150 MG CAPSULE PO SCH (09:00)
[2018-10-02] MEDS: FUROSEMIDE 40 MG TABLET PO SCH (09:00)
[2018-10-02] MEDS: ASCORBIC ACID 500 MG TAB PO SCH ×2 (09:45→21:14)
[2018-10-02] MEDS: FAMOTIDINE/PF 20 MG/2 ML VIAL IV SCH (09:45)
[2018-10-02] MEDS: ASPIRIN 325 MG TABLET PO SCH (09:45)
[2018-10-02] MEDS: ENOXAPARIN SODIUM 30 MG/0.3 ML SQ SCH (09:46)
[2018-10-02 11:00] VITALS: BP 103/64
--- NOTE | 2018-10-02 14:08 | NUR ---
DR. PHOENIX IN ROOM SPEAKING WITH PT.
[2018-10-02 16:00] VITALS: BP 102/64
[2018-10-02 19:00] VITALS: BP 130/70
[2018-10-02] MEDS: FENOFIBRATE NANOCRYSTALLIZED 48 MG TAB PO SCH (21:14)
[2018-10-02] MEDS: FERROUS SULFATE 325 MG TABLET.DR PO SCH (21:14)
[2018-10-02] MEDS: ATORVASTATIN CALCIUM 40 MG TABLET PO SCH (21:14)
[2018-10-02] MEDS: INSULIN GLARGINE 100 UNITS/ML 10 ML VIAL SQ SCH (21:15)
[2018-10-02] MEDS: IMATINIB 400 MG PO SCH (21:18)
[2018-10-02 23:16] VITALS: BP 100/53
[2018-10-03 03:46] VITALS: BP 105/50
[2018-10-03] MEDS: INSULIN HUMULIN R 100 UNIT/ML 3ML SQ SCH ×4 (05:52→21:47)
[2018-10-03] MEDS: LEVOTHYROXINE 88 MCG TABLET PO SCH (05:52)
[2018-10-03] MEDS: IPRATROPIUM 0.5 MG/2.5 ML INH IH SCH ×4 (06:24→23:32)
[2018-10-03 07:00] VITALS: BP 120/74
[2018-10-03] MEDS: ASPIRIN 325 MG TABLET PO SCH (08:21)
[2018-10-03] MEDS: FERROUS SULFATE 325 MG TABLET.DR PO SCH ×2 (08:21→20:41)
[2018-10-03] MEDS: ASCORBIC ACID 500 MG TAB PO SCH ×2 (08:21→20:40)
[2018-10-03] MEDS: CARVEDILOL 12.5 MG TABLET PO SCH ×2 (08:22→20:41)
[2018-10-03] MEDS: DOCUSATE SODIUM 100 MG CAP PO SCH ×2 (08:22→20:40)
[2018-10-03] MEDS: FAMOTIDINE/PF 20 MG/2 ML VIAL IV SCH (08:23)
[2018-10-03] MEDS: HEPARIN SODIUM 5000UNIT/ML 1ML VIAL SQ SCH ×2 (08:31→17:23)
[2018-10-03] MEDS: INSULIN GLARGINE 100 UNITS/ML 10 ML VIAL SQ SCH ×2 (08:31→21:47)
[2018-10-03 11:00] VITALS: BP 103/67
[2018-10-03 16:00] VITALS: BP 122/64
[2018-10-03 19:26] VITALS: BP 113/72
[2018-10-03] MEDS: ATORVASTATIN CALCIUM 40 MG TABLET PO SCH (20:40)
[2018-10-03] MEDS: FENOFIBRATE NANOCRYSTALLIZED 48 MG TAB PO SCH (20:40)
[2018-10-03] MEDS: IMATINIB 400 MG PO SCH (20:43)
[2018-10-03 23:43] VITALS: BP 110/49
[2018-10-04] MEDS: HEPARIN SODIUM 5000UNIT/ML 1ML VIAL SQ SCH ×3 (01:09→16:09)
[2018-10-04 03:49] VITALS: BP 126/57
[2018-10-04] MEDS: LEVOTHYROXINE 88 MCG TABLET PO SCH (06:21)
[2018-10-04] MEDS: INSULIN GLARGINE 100 UNITS/ML 10 ML VIAL SQ SCH ×2 (06:23→20:48)
[2018-10-04] MEDS: INSULIN HUMULIN R 100 UNIT/ML 3ML SQ SCH ×4 (06:26→21:00)
[2018-10-04] MEDS: IPRATROPIUM 0.5 MG/2.5 ML INH IH SCH ×4 (07:13→23:13)
[2018-10-04 07:25] VITALS: BP 132/83
[2018-10-04] MEDS: DOCUSATE SODIUM 100 MG CAP PO SCH ×2 (09:17→20:46)
[2018-10-04] MEDS: FAMOTIDINE/PF 20 MG/2 ML VIAL IV SCH (09:17)
[2018-10-04] MEDS: ASCORBIC ACID 500 MG TAB PO SCH ×2 (09:17→20:47)
[2018-10-04] MEDS: FERROUS SULFATE 325 MG TABLET.DR PO SCH ×2 (09:17→20:47)
[2018-10-04] MEDS: ASPIRIN 325 MG TABLET PO SCH (09:17)
[2018-10-04] MEDS: CARVEDILOL 12.5 MG TABLET PO SCH ×2 (09:18→20:46)
[2018-10-04 11:36] VITALS: BP 102/55
--- NOTE | 2018-10-04 15:16 | NUR ---
PATIENT ON HOLD SECONDARY TO UNDERGOING LAMINECTOMY PER RHYS PIERCE Addendum: 10/04/18 at 1517 by DEVIN THOMAS PT Amended: Links added. Addendum: 10/06/18 at 1136 by DEVIN THOMAS PT INCORRECT DATA ON PATIENT OF 10/04/2018
[2018-10-04 15:44] VITALS: BP 132/82
--- NOTE | 2018-10-04 16:05 | NUR ---
[facility]: 3rd HD treatment, along w updated MARs/VS/PN faxed to [facility]. Still pending acceptance and chair time. CM to continue to follow.
[2018-10-04 19:39] VITALS: BP 131/73
[2018-10-04] MEDS: IMATINIB 400 MG PO SCH (20:47)
[2018-10-04] MEDS: ATORVASTATIN CALCIUM 40 MG TABLET PO SCH (20:47)
[2018-10-04] MEDS: TRAMADOL HCL 50 MG TABLET PO PRN (20:47)
[2018-10-04] MEDS: FENOFIBRATE NANOCRYSTALLIZED 48 MG TAB PO SCH (20:47)
--- NOTE | 2018-10-04 22:59 | NUR ---
Patient sitting up in chair. No chest pain or sob. Patient did c/o Left knee pain. Medicated per pain scale. Patient chest incision without s/s of infection . Left inner knee harvest site is swollen down to ankle. R upper chest double lumen HD site, CDI. Patient reached 1500 when using the I.S Will continue to monitor.
[2018-10-04 23:30] VITALS: BP 116/76
[2018-10-05] MEDS: HEPARIN SODIUM 5000UNIT/ML 1ML VIAL SQ SCH ×2 (01:00→07:42)
[2018-10-05 03:22] VITALS: BP 120/61
[2018-10-05] MEDS: IPRATROPIUM 0.5 MG/2.5 ML INH IH SCH ×4 (06:22→23:57)
[2018-10-05] MEDS: INSULIN HUMULIN R 100 UNIT/ML 3ML SQ SCH ×4 (06:31→21:00)
[2018-10-05] MEDS: LEVOTHYROXINE 88 MCG TABLET PO SCH (06:32)
[2018-10-05] MEDS: INSULIN GLARGINE 100 UNITS/ML 10 ML VIAL SQ SCH ×2 (06:36→20:56)
[2018-10-05] MEDS: ASPIRIN 325 MG TABLET PO SCH (07:38)
[2018-10-05] MEDS: CARVEDILOL 12.5 MG TABLET PO SCH ×2 (07:38→20:39)
[2018-10-05] MEDS: FERROUS SULFATE 325 MG TABLET.DR PO SCH ×2 (07:38→20:39)
[2018-10-05] MEDS: FAMOTIDINE/PF 20 MG/2 ML VIAL IV SCH (07:38)
[2018-10-05] MEDS: ASCORBIC ACID 500 MG TAB PO SCH ×2 (07:38→20:39)
[2018-10-05] MEDS: DOCUSATE SODIUM 100 MG CAP PO SCH ×2 (07:38→20:39)
[2018-10-05 07:45] VITALS: BP 118/65
--- NOTE | 2018-10-05 08:30 | NUR ---
ASSESSMENT PT IS AAOX4 DENIES CP DENIES SOB DENIES NV NO COMPLAINTS SITTING UP IN CARDIAC CHAIR. STERNAL INCISION IS OPEN TO AIR CLEAN DRY AND INTACT. ENCOURAGED USE OF IS 10XS Q1HR WHILE AWAKE, ENCOURAGED COUGH AND DEEP BREATHING WITH HEART PILLOW SPLINTING. FAMILY IS AT BEDSIDE, CALL LIGHT WITHIN REACH.
[2018-10-05 10:30] VITALS: BP 110/42
--- NOTE | 2018-10-05 10:45 | NUR ---
DR MURRELL ROUNDED SAW PATIENT, ORDERED ORTHO CONSULT TOMORROW 10-06-18, REGARDING LEFT KNEE SWELLING.
[2018-10-05] MEDS: IBUPROFEN 200 MG TAB PO PRN ×2 (15:56→21:49)
[2018-10-05 15:59] VITALS: BP 115/68
--- NOTE | 2018-10-05 19:30 | NUR ---
DR PHOENIX ROUNDED ON PATIENT.
[2018-10-05 19:31] VITALS: BP 112/75
[2018-10-05] MEDS: ATORVASTATIN CALCIUM 40 MG TABLET PO SCH (20:39)
[2018-10-05] MEDS: IMATINIB 400 MG PO SCH (20:39)
[2018-10-05] MEDS: FENOFIBRATE NANOCRYSTALLIZED 48 MG TAB PO SCH (20:39)
[2018-10-05 23:31] VITALS: BP 115/69
--- NOTE | 2018-10-06 01:29 | NUR ---
PATIENT SITTING ON CHAIR DURING THE EVENING. CHEST INCISION WITHOUT S/S OF INFECTION. NO CHEST PAIN OR SOB. DID C/O MILD PAIN TO L KNEE. MEDICATED PER PAIN SCALE. RUC PERM DRESSING, CDI.
[2018-10-06 03:16] VITALS: BP 121/50
[2018-10-06 04:17] LABS: HEMATOCRIT 24.9 % (42-54); MEAN CORPUSCULAR HEMOGLOBIN 30.9 pg (27.0-33.0); MEAN CORPUSCULAR HGB CONC 33.9 g/dL (32.0-36.0); MEAN CORPUSCULAR VOLUME 91.2 fL (79-99); PLATELET COUNT (AUTO) 309 K/uL (130-400); RED BLOOD CELL COUNT(AUTO) 2.73 MIL/uL (4.50-6.20); RED CELL DISTRIBUTION WIDTH 14.8 % (11.0-15.5); WHITE BLOOD COUNT (AUTO) 6.7 K/uL (4.8-10.8)
[2018-10-06 04:22] LABS: CREATININE 3.9 mg/dL (0.5-1.5); POTASSIUM 3.7 mmol/L (3.5-5.1)
[2018-10-06] MEDS: LEVOTHYROXINE 88 MCG TABLET PO SCH (06:26)
[2018-10-06] MEDS: INSULIN GLARGINE 100 UNITS/ML 10 ML VIAL SQ SCH (06:34)
[2018-10-06] MEDS: INSULIN HUMULIN R 100 UNIT/ML 3ML SQ SCH ×3 (06:34→16:30)
[2018-10-06] MEDS: IPRATROPIUM 0.5 MG/2.5 ML INH IH SCH ×3 (06:43→18:38)
[2018-10-06 07:47] VITALS: BP 107/59
--- NOTE | 2018-10-06 08:45 | NUR ---
AM ASSESSMENT PT SITTING IN CHAIR, WATCHING TV. SPOUSE @ BEDSIDE. SPA SPEAKING ONLY. A/O X 3. NO SOB. NO DISTRESS NOTED. DENIES CHEST PAIN OR DISCOMFORT. DENIES PALPITATIONS. TELE: SR 70s. DENIES INCISIONAL PAIN. STERNAL INCISION WELL APPROX, NO DRAINAGE NOTED. STERNAL PRECAUTIONS REINFORCED. IS @ 1000 ML. PURPOSE & IMPORTANCE OF IS REINFORCED @ THIS TIME. DENIES N/V AND/OR DIARRHEA. SWELLING & TENDERNESS TO LT KNEE, AWARE. CONSULT W/DR RODRIGUEZ REGARDING LT KNEE PENDING TODAY. NEW HD THIS ADMIT. PT TO HAVE HD TODAY. UP W/ASSISTANCE. INSTRUCTED TO CALL FOR ASSISTANCE. CALL VAHID W/IN REACH.
--- NOTE | 2018-10-06 10:28 | NUR ---
ILYA PLAN VISITED WITH PATIENT. GAVE DIALYSIS SHEET PAPER. PATIENT CHAIR IS TTS FIRST APPOINTMENT 130PM TOMORROW 10/[address] [facility] Addendum: 10/06/18 at 1030 by OMA LAGUERRE RN CM Amended: Links added.
--- NOTE | 2018-10-06 11:50 | NUR ---
ILYA PLAN NEW CONSULT FOR ORTHO FOR REGARDING KNEE SWELLING. Addendum: 10/06/18 at 1151 by OMA LAGUERRE RN CM Amended: Links added.
[2018-10-06 11:57] VITALS: BP 117/75
--- NOTE | 2018-10-06 14:45 | NUR ---
HEMODIALYSIS 2 L OF FLUID REMOVED DURING HD. TOLERATED HD WELL. V/S WNL.
[2018-10-06] MEDS: FERROUS SULFATE 325 MG TABLET.DR PO SCH (15:26)
[2018-10-06] MEDS: DOCUSATE SODIUM 100 MG CAP PO SCH (15:26)
[2018-10-06] MEDS: ASCORBIC ACID 500 MG TAB PO SCH (15:26)
[2018-10-06] MEDS: CARVEDILOL 12.5 MG TABLET PO SCH (15:27)
[2018-10-06] MEDS: ASPIRIN 325 MG TABLET PO SCH (15:27)
[2018-10-06] MEDS ORDERED: FAMOTIDINE 20MG TAB 20 MG TAB PO SCH (15:30)
[2018-10-06 15:39] VITALS: BP 124/74
--- NOTE | 2018-10-06 18:20 | NUR ---
ORTHO CONSULT DR RODRIGUEZ IN TO SEE PT. PT'S SPOUSE @ BEDSIDE. PT INFORMED MD EPISODES OF BURSITIS IN THE PAST. ORDER RECEIVED FROM DR RODRIGUEZ TO CHANGE MOTRIN PO FROM PRN TO SCHED.
--- NOTE | 2018-10-06 18:30 | NUR ---
STATUS PT & SPOUSE INFORMED OF DR RODRIGUEZ'S ORDER & PLAN. PT INFORMED PLAN TO DC HOME TOMORROW WHEN [facility] [facility] SINCE GROUP IS PRIMARY MD. DISCHARGE PROCESS EXPLAINED. PT DETERMINED TO LEAVE HOME TODAY W/OUT DR MURRELL'S DC ORDER. EXPLAINED LEAVING AGAINST MEDICAL ADVICE. I ISAIAS ESPINAL TO BE NOTIFIED.
--- NOTE | 2018-10-06 18:55 | NUR ---
WENT IN TO SPEAK WITH PATIENT AND EXPLAINED TO HIM AND HIS ABOUT BEING DISMISSED TOMORROW UPON ROUNDS BY THE [employer]. PATIENT ANXIOUS AND ADAMANT ABOUT LEAVING NOW, TONIGHT. INFORMED HIM TO WAIT AND SEE FOR DR. MURRELL'S RESPONSE....HE CONTINUED TO PACE IN ROOM AND DETERMINED TO LEAVE AGAINST MEDICAL ADVICE. INFORMED HIM OF SIGNING PAPERWORK CONCERNING AMA FORMS...HE STATED HE DID NOT CARE AND WANTS TO JUST GO HOME. HIS ALSO SAYING SHE WOULD LIKE TO TAKE HIM HOME NOW AND WILL NOT WAIT FOR DR. MURRELL AND THEY WILL NOT WAIT FOR TOMORROW.
--- NOTE | 2018-10-06 19:06 | NUR ---
RECEIVED ORDER TO DISMISS FROM DR. MURRELL AND TO CONTINUE HOME MEDS EXCEPT LASIX PLUS ADD BABY ASPIRIN 81 MG PO DAILY. INFORMED PATIENT AND HIS ...PATIENT STATED THAT HE WOULD GIVE ME 10 MINUTES TO GET HIS PAPERWORK AND IF NOT HE IS LEAVING.
--- NOTE | 2018-10-06 19:15 | NUR ---
REMOVED TELE PACK AND SALINE LOCK. LEFT WRIST IV SITE WITHOUT REDNESS NOTED. INFORMED PT TO ALLOW ME 15 MINUTES TO WORK ON HIS DISCHARGE PAPERWORK. VERBALIZED UNDERSTANDING.
[2018-10-06] MEDS ORDERED: AEC81 PO (19:20)
--- NOTE | 2018-10-06 19:25 | NUR ---
GIVEN DISMISSAL INSTRUCTIONS TO PATIENT AND HIS --VERBALIZED UNDERSTANDING. TAKEN TO PRIVATE CAR VIA WHEELCHAIR BY LILIANA SMITH.
[2018-10-06] MEDS ORDERED: IBUPROFEN 200 MG TAB PO SCH (22:00)
== END 2018-10-06 19:35 | disposition home or self-care (01) | DRG 166 ==
LOC: DAHIP 07:33 → 2CV 12:23 → 2CH 09-25 11:25 → 2DH 09-26 16:02
PROVIDERS: ADMIT Internal Medicine; ATTEND Internal Medicine
PROC: 021209W Bypass Coronary Artery, Three Arteries from Aorta with Autologous Venous Tissue, Open Approach (ICD-10-PCS; principal; 2018-09-24 08:39)
PROC: 02100Z9 Bypass Coronary Artery, One Artery from Left Internal Mammary, Open Approach (ICD-10-PCS; 2018-09-24 08:39)
PROC: 06BQ4ZZ Excision of Left Saphenous Vein, Percutaneous Endoscopic Approach (ICD-10-PCS; 2018-09-24 08:39)
PROC: 30233N1 Transfusion of Nonautologous Red Blood Cells into Peripheral Vein, Percutaneous Approach (ICD-10-PCS; 2018-09-27)
PROC: 5A1D70Z Performance of Urinary Filtration, Intermittent, Less than 6 Hours Per Day (ICD-10-PCS; 2018-09-30)
PROC: 0JH63XZ Insertion of Tunneled Vascular Access Device into Chest Subcutaneous Tissue and Fascia, Percutaneous Approach (ICD-10-PCS; 2018-09-30)
PROC: 02H633Z Insertion of Infusion Device into Right Atrium, Percutaneous Approach (ICD-10-PCS; 2018-09-30)
PROC: B244ZZZ Ultrasonography of Right Heart (ICD-10-PCS; 2018-09-30)
PROC: B2141ZZ Fluoroscopy of Right Heart using Low Osmolar Contrast (ICD-10-PCS; 2018-09-30)
PROC: 5A1D70Z Performance of Urinary Filtration, Intermittent, Less than 6 Hours Per Day (ICD-10-PCS; 2018-10-01)
PROC: 5A1D70Z Performance of Urinary Filtration, Intermittent, Less than 6 Hours Per Day (ICD-10-PCS; 2018-10-03)
PROC: 5A1D70Z Performance of Urinary Filtration, Intermittent, Less than 6 Hours Per Day (ICD-10-PCS; 2018-10-06)
DX: I25.119 Atherosclerotic heart disease of native coronary artery with unspecified angina pectoris (principal); I13.2 Hypertensive heart and chronic kidney disease with heart failure and with stage 5 chronic kidney disease, or end stage renal disease; N17.9 Acute kidney failure, unspecified; E11.21 Type 2 diabetes mellitus with diabetic nephropathy; C92.90 Myeloid leukemia, unspecified, not having achieved remission; C92.10 Chronic myeloid leukemia, BCR/ABL-positive, not having achieved remission; N18.6 End stage renal disease; I42.0 Dilated cardiomyopathy; I50.21 Acute systolic (congestive) heart failure; E11.22 Type 2 diabetes mellitus with diabetic chronic kidney disease; D62 Acute posthemorrhagic anemia; I50.20 Unspecified systolic (congestive) heart failure; D63.1 Anemia in chronic kidney disease; E03.9 Hypothyroidism, unspecified; E78.1 Pure hyperglyceridemia; I25.5 Ischemic cardiomyopathy; M17.11 Unilateral primary osteoarthritis, right knee; M76.52 Patellar tendinitis, left knee; K59.00 Constipation, unspecified; E78.5 Hyperlipidemia, unspecified; Z99.2 Dependence on renal dialysis; Z79.82 Long term (current) use of aspirin; Z79.899 Other long term (current) drug therapy; Z98.42 Cataract extraction status, left eye; Z98.41 Cataract extraction status, right eye; I25.2 Old myocardial infarction
CPT/HCPCS: 36415; 36430; 36558; 71045; 71046; 73560; 73700; 77001; 80048; 80053; 80061; 80069; 82330; 82435; 82728; 82803; 82947; 82948; 83036; 83540; 83550; 83605; 83735; 83880; 84100; 84132; 84295; 84443; 84550; 85014; 85018; 85025; 85027; 85347; 85610; 85730; 86701; 86704; 86706; 86850; 86900; 86901; 86922; 87340; 87390; 87520; 90935; 93005; 93880; 94002; 94003; 94010; 94150; 94640; 94664; 94760; 97039; A7048; C1750; G0378; J0171; J0282; J0610; J0690; J0885; J1644; J1650; J1815; J1940; J2001; J2250; J2270; J2370; J2405; J2440; J2704; J2720; J2765; J3010; J3475; J3480; J3490; J7030; J7040; J7120; P9016; Q0161

== ENCOUNTER → 2019-02-18 | Outpatient (CLI) | payer MEDICARE ==
[~2019-02-18] MED LIST changes: +AEC81 PO; -FURO80TA3 PO
== END | disposition home or self-care (01) ==
LOC: OIH 12:38
PROVIDERS: ATTEND Internal Medicine
DX: M06.4 Inflammatory polyarthropathy (principal)
CPT/HCPCS: 73130; 73560; 73630